=== PATIENT | male | born 1945 | race Caucasian/White ===

== ENCOUNTER → 2016-05-27 09:24 | Outpatient (CLI) | payer BC ==
[2014-02-11 10:10] VITALS: BMI 20.8
[~2016-05-27 09:24] MED LIST: BISOPROLOL-HCT1 EAC1 PO; CHLORASEPTIC177 ML TOPICAL; CLOBETASOL PROP15 GM TP; DOXYCYCLINE HY100 M2 PO; ORA RELIEF177 ML PO; OXYCONTIN10 MG PO
[2016-05-27 10:27] LABS: CREATININE - SERUM 1.3 mg/dL (0.6-1.3)
== END | disposition home or self-care (01) ==
LOC: D.CT 05-17 10:00
PROVIDERS: Internal Medicine Medical Oncology
DX: C64.1 Malignant neoplasm of right kidney, except renal pelvis (principal)

== ENCOUNTER → 2016-10-14 06:44 | Outpatient (CLI) | payer BC ==
[2014-02-11 10:10] VITALS: BMI 20.8
[2016-10-14 08:55] LABS: CREATININE - SERUM 1.1 mg/dL (0.6-1.3)
== END | disposition home or self-care (01) ==
LOC: D.CT 06:44
PROVIDERS: Internal Medicine Medical Oncology
DX: C64.1 Malignant neoplasm of right kidney, except renal pelvis (principal)

== ENCOUNTER → 2017-04-14 09:43 | Outpatient (CLI) | payer BC ==
[2014-02-11 10:10] VITALS: BMI 20.8
== END | disposition home or self-care (01) ==
LOC: D.CT 09:43
DX: C64.1 Malignant neoplasm of right kidney, except renal pelvis (principal)

== ENCOUNTER → 2017-10-27 13:04 | Outpatient (CLI) | payer BC ==
[2014-02-11 10:10] VITALS: BMI 20.8
== END | disposition home or self-care (01) ==
LOC: D.CT 10-23 09:30
DX: C78.00 Secondary malignant neoplasm of unspecified lung (principal); C77.1 Secondary and unspecified malignant neoplasm of intrathoracic lymph nodes; C64.1 Malignant neoplasm of right kidney, except renal pelvis; C78.01 Secondary malignant neoplasm of right lung

== ENCOUNTER → 2018-03-30 10:35 | Outpatient (CLI) | payer BC ==
[2014-02-11 10:10] VITALS: BMI 20.8
[2018-03-30 11:28] LABS: CREATININE - SERUM 1.2 mg/dL (0.6-1.3)
== END | disposition home or self-care (01) ==
LOC: D.CT 10:35
PROVIDERS: Internal Medicine Medical Oncology
DX: C78.00 Secondary malignant neoplasm of unspecified lung (principal); C77.1 Secondary and unspecified malignant neoplasm of intrathoracic lymph nodes; C64.1 Malignant neoplasm of right kidney, except renal pelvis; C78.01 Secondary malignant neoplasm of right lung

== ENCOUNTER → 2018-08-28 08:23 | Outpatient (CLI) | payer BC ==
[2014-02-11 10:10] VITALS: BMI 20.8
--- NOTE | 2018-09-02 09:02 | EC ---
PATIENT:ANNA MARIE WADSWORTH DATE OF SERVICE: 08/28/18 SEX: M MEDICAL RECORD: [id number] DATE OF : 47 LOCATION:[facility] AGE OF PATIENT: 72 ADMISSION DATE: 08/28/18 REFERRING PHYSICIAN: INTERPRETING PHYSICIAN: CARSON MCLEOD MD ECHOCARDIOGRAM REPORT ECHO CHARGES 4 ECHO COMPLETE Date: 08/28/18 CLINICAL DIAGNOSIS: CP/SOB H/O HTN/RENAL CANCER ECHOCARDIOGRAPHIC MEASUREMENTS (adult normal given) AC root (d.<3.7cm) 3.2 cm LV Septum d (<1.2 cm> 1.4 cm Valve Excursion 1.2 cm LV Septum (systole) 1.6 cm Left Atria (s.<4.0cm> 2.9 cm LVPW d(<1.2cm) 1.2 cm RV (d.<2.3cm) 3.0 cm LVPW (sytole) 2.1 cm LV diastole(<5.6CM) 5.5 cm MV E-F(>70mm/sec) cm LV systole 3.7 cm LVOT Diameter 1.9 cm MV exc.(>10mm) cm Est.ejection fraction (50-75%) % DOPPLER: LVIT cm/sec A 44.0 cm/sec E 65.0 cm/sec LA cm/sec RVSP 29.0 mmHg LVOT 90.0 cm/sec AOP1/2T m/s Asc. Ao 141 cm/sec RVOT 44.0 cm/sec RA cm/sec PA 47.0 cm/sec AV Gradient Peak 7.9 mmHg AV Mean 4.0 mmHg AV Area 1.6 cm MV Gradient Peak 2.1 mmHg MV Mean 0.83 mmHg MV Area cm COMMENTS: OP - HC Harness Worker: Lei HERNDONOE Tram Driver: 1 Dr. Mcleod TAPE# PACS Pericardial Effusion N DATE OF SERVICE: 08/28/2018 ECHOCARDIOGRAM DATE OF SERVICE: 08/28/2018 FINDINGS: 1. Left ventricular chamber size is within normal limits. Left ventricular systolic function is normal. Overall ejection fraction estimated at 55%. 2. Left atrium is within normal limits at 2.9 cm. Right atrium and right ECHOCARDIOGRAM REPORT [id number] ANNA MARIE WADSWORTH ventricular chamber sizes are mildly dilated. 3. Valvular structures; the tricuspid valve appears to have a possible ruptured chordae and flail leaflet. However, the regurgitation is only mild with this. The remaining valvular structures have normal structure and motion. 5. Doppler interrogation elsewise reveals mild mitral regurgitation. Tricuspid regurgitation is mild as above and pulmonary systolic pressure is estimated at 30 mmHg. 6. No evidence of pericardial effusion or left ventricular thrombus. TRANSINT:[id number] Voice Confirmation ID: [id number] DOCUMENT ID: [id number] CARSON MCLEOD MD at 0902 CC: [id number] DICTATION DATE: 08/28/18 1419 FACING SLITTER: 08/28/18 1545 DEP CLI 08/28/18 [facility] [address] [place] [address]
--- NOTE | 2018-09-02 16:20 | ST ---
PATIENT:ANNA MARIE WADSWORTH MEDICAL RECORD: [id number] SEX: M LOCATION:[facility] ORDER #: ADMISSION DATE: 08/28/18 AGE OF PATIENT: 72 REFERRING PHYSICIAN: INTERPRETING PHYSICIAN: CARSON MEDINA MD DATE OF SERVICE: 08/28/2018 PROCEDURE: Nuclear stress test. INDICATIONS: Chest pain, shortness of breath, hypertension. He was exercised on standard Pedrito protocol for 9 minutes 45 seconds achieving greater than 85% max target heart rate response with 33 mCi of sestamibi used for peak stress, 11 mCi were used previously for rest images. FINDINGS: Gated SPECT reveals preserved ejection fraction at 59% with good wall motion and thickening and brightening throughout all segments. SPECT imaging: Cardiolite was used as myocardial perfusion agent. There is homogeneous uptake throughout all segments at rest and stress with no evidence of inducible ischemia or previous infarction. OVERALL IMPRESSION: 1. This is a normal nuclear stress test with no evidence of inducible ischemia or previous infarction. 2. Gated SPECT reveals a preserved ejection fraction at 59%. In this patient with ongoing symptomatology, the current scan does not suggest the presence of hemodynamically significant coronary artery disease. Evaluate noncardiac etiology of chest pain. TRANSINT:[id number] Voice Confirmation ID: [id number] DOCUMENT ID: [id number] CARSON MEDINA MD at 1620 CC: [id number] DICTATION DATE: 08/28/18 1352 PRODUCTION ESTIMATOR: 08/29/18 0603 DEP CLI 08/28/18 [place] [id number]
== END | disposition home or self-care (01) ==
LOC: D.HCCARDIO 08:23
PROVIDERS: ATTEND Internal Medicine Interventional Cardiology
DX: R06.02 Shortness of breath (principal)